=== PATIENT | female | born 1970 | race Caucasian/White ===

== ENCOUNTER 2016-07-29 22:29 | Inpatient (IN) | payer OTHER ==
[~2016-07-29] VITALS: Ht 162.6 cm; Wt 92.0 kg
[2016-07-30] VITALS (20 sets, daily range): BP systolic 92–153; BP diastolic 50–96; O2SAT 98–100
[2016-07-30] MEDS ORDERED: MORPHINE 2 MG/ML 1ML SYRINGE IV PRN
[2016-07-30 02:39] LABS: ABG BASE EXCESS -7.2 (-2.0-2.0); ABG PARTIAL PRESSURE CO2 35.5 mmHg (35.0-45.0); ABG STANDARD HCO3 18.3 MEQ/L (22.0-26.0); ABG TOTAL CO2 19.1 MEQ/L (22.0-29.0); ABG pH (ARTERIAL) 7.323 UNITS (7.350-7.450)
[2016-07-30 02:41] LABS: ABG PARTIAL PRESSURE O2 39.9 mmHg (75.0-100.0)
[2016-07-30 02:54] LABS: ABG BASE EXCESS -5.6 (-2.0-2.0); ABG HCO3 18.2 MEQ/L (22.0-26.0); ABG PARTIAL PRESSURE CO2 30.3 mmHg (35.0-45.0); ABG PARTIAL PRESSURE O2 117.8 mmHg (75.0-100.0); ABG STANDARD HCO3 19.9 MEQ/L (22.0-26.0); ABG TOTAL CO2 19.1 MEQ/L (22.0-29.0); ABG pH (ARTERIAL) 7.396 UNITS (7.350-7.450)
[2016-07-30 03:00] LABS: BASO % 0.1 % (0.0-1.0); EOS # 0.2 K/mm3 (0.0-0.50); EOS % 3.1 % (0.0-3.0); LARGE UNSTAINED CELL # 0.1 K/mm3 (0.0-0.4); LYMPH # 0.9 K/mm3 (1.5-4.5); LYMPH % 11.8 % (24.0-44.0); MEAN CORPUSCULAR HEMOGLOBIN 28.9 pg (27.0-33.0); MEAN CORPUSCULAR HGB CONC 33.9 g/dl (32.0-36.5); MEAN CORPUSCULAR VOLUME 85.3 fl (80.0-96.0); MONO # 0.4 K/mm3 (0.0-0.8); MONO % 4.7 % (0.0-5.0); NEUTROPHILS # 5.8 K/mm3 (1.8-7.7); NEUTROPHILS % 79.2 % (36.0-66.0); PLATELET COUNT, AUTOMATED 229 k/mm3 (150-450); RED CELL DISTRIBUTION WIDTH 13.8 % (11.5-14.5); WHITE BLOOD COUNT 7.3 K/mm3 (4.0-10.0)
[2016-07-30] MEDS: CHLORHEXIDINE GLUCONATE 0.12 % 15ML UDC (PERIDEX ORAL RINSE) MT SCH ×3 (03:00→20:39)
[2016-07-30] MEDS ORDERED: TOPI25TA5 PO (03:04)
[2016-07-30] MEDS ORDERED: QUET1TAB10 PO (03:04)
[2016-07-30] MEDS ORDERED: NP T15TA PO (03:04)
[2016-07-30] MEDS ORDERED: TYLE1TAB5 PO (03:04)
[2016-07-30] MEDS ORDERED: LAMO100T PO (03:04)
[2016-07-30] MEDS ORDERED: AZIT250T3 PO (03:04)
[2016-07-30] MEDS ORDERED: CETI10TA PO (03:04)
[2016-07-30] MEDS ORDERED: FLON1SPR (03:04)
[2016-07-30] MEDS ORDERED: MIRA33504 PO (03:04)
[2016-07-30] MEDS ORDERED: CARV6.25 PO (03:04)
[2016-07-30] MEDS ORDERED: SENN-15 PO (03:04)
[2016-07-30] MEDS ORDERED: DULO1CAP3 PO (03:04)
[2016-07-30] MEDS ORDERED: PRAZ2CAP PO (03:04)
[2016-07-30] MEDS ORDERED: [UNRECOGNIZED DRUG - CODE] PO (03:04)
[2016-07-30] MEDS ORDERED: CLON0.5T PO (03:04)
[2016-07-30 03:44] LABS: ALBUMIN 2.6 GM/DL (3.2-5.2); ALBUMIN/GLOBULIN RATIO 0.93 (1.00-1.93); ALKALINE PHOSPHATASE 83 U/L (45-117); ALT/SGPT 30 U/L (12-78); ANION GAP 9 MEQ/L (8-16); AST/SGOT 126 U/L (15-37); BILIRUBIN,TOTAL 0.3 MG/DL (0.2-1.0); BLOOD UREA NITROGEN 11 MG/DL (7-18); CALCIUM LEVEL 7.3 MG/DL (8.5-10.1); CARBON DIOXIDE LEVEL 20 MEQ/L (21-32); CHLORIDE LEVEL 118 MEQ/L (98-107); CHOLESTEROL LEVEL 128 MG/DL (< 200); CREATININE FOR GFR 0.76 MG/DL (0.55-1.02); GLOMERULAR FILTRATION RATE > 60.0 (>58); GLUCOSE, FASTING 106 MG/DL (70-105); PHOSPHORUS LEVEL 1.9 MG/DL (2.5-4.9); POTASSIUM SERUM 3.6 MEQ/L (3.5-5.1); SODIUM LEVEL 147 MEQ/L (136-145); TOTAL PROTEIN 5.4 GM/DL (6.4-8.2); TRIGLYCERIDES LEVEL 115 MG/DL (<150)
[2016-07-30 05:28] LABS: HIVSOURCE0 NEGATIVE (NEGATIVE)
[2016-07-30 05:29] LABS: HIV SOURCE PT 1 NEGATIVE (NEGATIVE)
[2016-07-30 05:30] LABS: CONTROL LINE INT CTR LINE PRESENT
[2016-07-30] MEDS: PROPOFOL 1,000 MG in APPROPRIATE DILUENT 1 EA IV SCH ×3 (05:36→20:38)
[2016-07-30 06:26] LABS: ABG BASE EXCESS -6.3 (-2.0-2.0); ABG HCO3 16.1 MEQ/L (22.0-26.0); ABG PARTIAL PRESSURE CO2 23.8 mmHg (35.0-45.0); ABG STANDARD HCO3 19.3 MEQ/L (22.0-26.0); ABG TOTAL CO2 16.8 MEQ/L (22.0-29.0); ABG pH (ARTERIAL) 7.447 UNITS (7.350-7.450)
--- NOTE | 2016-07-30 06:39 | RO ---
DATE OF PROCEDURE: 07/30/2016 PREPROCEDURE DIAGNOSIS: Hypotension. POSTPROCEDURE DIAGNOSIS: Hypotension. PROCEDURE: Left radial arterial line. PROCEDURALIST: Nikunj Crawford DO PARENT PARTNER: None. ANESTHESIA: The patient was sedated on mechanical ventilation. DESCRIPTION OF PROCEDURE: The right radial artery was evaluated with a normal Luis Miguel's test. The skin was prepped and draped with chlorhexidine and a sterile barrier. A time out was performed identifying correct site, correct procedure. The needle was passed into the artery on the first pass with return of pulsatile blood flow. Wire was fed through the needle and the Sensor Tower arterial line catheter was placed via modified Seldinger technique. After the wire was removed, the catheter was hooked up to the pressure bag and arterial waveform monitor showed good waveform which correlated with noninvasive blood pressure. There were no observed complications. This was sutured in and a sterile impregnated dressing was placed over the site.
--- NOTE | 2016-07-30 06:59 | HPE ---
DATE OF ADMISSION: 07/30/2016 Critical care time was 1 hour and 30 minutes. This excludes all procedures. I waited for the arrival of this patient who was sent from an outside hospital after she was admitted on July 28. According to the history from the chart and the provider I spoke to, Dr. Morales, the arrived via EMS after being found unresponsive by her boyfriend. They felt that despite her not being responsive to noxious stimuli that she could still protect her airway and she was occasionally moving. Therefore, they monitored her there. She had progressive decreased mental status and then it was felt that last evening around 10:00 p.m. she was unable to protect her airway. Therefore, she was intubated shortly after 10:00 p.m. There is an estimated overdose of Lamictal, 34 pills of 100 mg tablets, 30 tablets of 25 mg of Topamax, 46 tablets of 0.5 clonazepam, and 16 tablets is 6.25 mg of Coreg. The patient had no significant blood pressure abnormalities or change in QTc. Toxicology screen was negative. I do not see where a test was performed. There was some suspicion of a possible aspiration and therefore ceftriaxone was initially given at the outside hospital. There is no one who accompanies her and I am not able to obtain any history other than what is from the chart. She does have a history of depression. Past medical history, as far as I can tell by the chart, is anxiety, hypertension, psychosis, insomnia, hypothyroidism, seasonal allergies, cholecystectomy, appendectomy, hysterectomy, bile duct stent and removal. With a family history of breast cancer. No other history is obtainable. PHYSICAL EXAMINATION: Pulse is 75. Blood pressure is 97/53 with a mean arterial pressure of 71. Temperature is 98.3. Respiratory rate is 20 and oxygen saturations 100% on 0.40 FiO2. GENERAL: Patient is sedated on mechanical ventilation. On her arrival she was on propofol and fentanyl. I removed the fentanyl and attempted a neurologic exam. Her pupils are approximately 4 mm and equal bilaterally. They are reactive. I could not get a corneal reflex. Oculocephalic reflex is normal. She has a cough with suctioning of the endotracheal tube; however, she is not responsive to painful stimuli. There is no evidence of tremor or seizure activity. HEENT: Sclerae clear and anicteric. Mucous membranes are moist without lesions. Endotracheal tube was moved back to 21 cm at the lip. Teeth in good repair. Tongue is midline. NECK: Supple. No tracheal deviation or mass. No elevated jugular venous pulse (JVP). No thyromegaly. CARDIAC: Regular S1 and S2 without audible murmur, rub or gallop. No elevated JVP. No peripheral edema. PULMONARY: Clear to auscultation without rales, rhonchi or wheezes. No dullness to percussion. ABDOMEN: Slightly distended, non-tympanic. No discernible hepatosplenomegaly or mass. No rebound or guarding, however, she is not responding to painful stimuli. I do not auscultate any bowel sounds. EXTREMITIES: Some generalized edema without pitting. No evidence of fracture or joint effusion. SKIN: No evidence of cellulitis rash in our bruising or jaundice. NEUROLOGIC: As mentioned above. LABORATORY EVALUATION: Pending at outside. Arterial blood gas, once I adjusted her ventilatory settings, is pH of 7.396, pCO2 of 30, and a PaO2 of 117. She had a chest x-ray on arrival to the ICU after I pulled the endotracheal tube back, as I did not auscultate good breath sounds on the left. After this adjustment, the endotracheal tube appears to be in adequate position, approximately just above 4 cm above the alida. There is some prominence of the right aleisha. otherwise no significant infiltrate or mass. There is no evidence of pneumothorax. There is no air under the diaphragm. OG tube appears to be in good position. EKG performed at bedside, based on my order, shows a sinus rhythm without any significant ST abnormalities. No significant prolongation of the QRS, although there is an interventricular delay with a duration of 103. QTC is 329. IMPRESSION: 46-year-old female with: 1. Respiratory failure secondary to drug overdose. Will continue to monitor for side effects of drug overdose. Given the dose that she took of the Lamictal and Topamax, she is at risk for seizures. Because of the clonazepam, this may off offset it, however, given the large dose of clonazepam it may take some time for her to recover neurologically. Will continue to monitor, perform daily sedation vacations with neurologic exam to monitor for neurologic recovery. 2. Gastrointestinal (GI) prophylaxis with Protonix. 3. Deep vein thrombosis (DVT) prophylaxis with Lovenox. 4. Will obtain a critical care panel, CBC and continue monitor for signs and symptoms of infection. 5. Hypotension likely sedative induced. Will wean off sedation as much as possible, allow for neurologic recovery. I did place an R line due to her relative hypotension. There is no signs of sepsis or septic shock. I have also ordered a test. Critical care time as mentioned above, 1 hour 30 minutes, spent at bedside, which excludes all procedures. At this point in time, will closely monitor for cardiac abnormalities and neurologic response given the overdose of multiple medications.
[2016-07-30] MEDS: ENOXAPARIN 40 MG/0.4 ML SYRINGE (J1650) SC SCH (09:03)
[2016-07-30] MEDS: PANTOPRAZOLE 40MG INJ (PROTONIX) (C9113) IV SCH (09:04)
--- NOTE | 2016-07-30 09:54 | REP ---
PORTABLE CHEST: Single AP view of the chest is performed. There are no prior studies. There is poor ventilation with mild patchy atelectasis/infiltrate in each lung base. Heart does not appear to be significantly enlarged. Mediastinal silhouette is unremarkable. Endotracheal tube is seen with the tip about 4.5 cm above the alida. Nasogastric tube is seen traversing into the stomach with the distal end not visualized. IMPRESSION: Mild patchy bibasilar atelectasis/infiltrate. Endotracheal tube and nasogastric tube as above. Signed by Chris Ayala MD 07/30/2016 07:58 P
--- NOTE | 2016-07-30 21:38 | ECGEPIP ---
Stationary ECG Study [facility] Test Date: 2016-07-30 Pat Name: BERENICE LAMBERT Department: Room: [place] [address] Gender: F Irrigation Laborer: : 1970 Requested By: FRANCO Mccloud Order Number: [id number] Reading MD: Aryan Perez Measurements Intervals [place] Rate: 75 P: 56 NC: 151 QRS: 20 QRSD: 103 T: 5 QT: 329 QTc: 369 Interpretive Statements SINUS RHYTHM NONSPECIFIC T-WAVE ABNORMALITY Comparison tracing not on file Electronically Signed On 07-30-2016 21:38:41 EST by Aryan Perez
[2016-07-31] VITALS (11 sets, daily range): BP systolic 110–140; BP diastolic 58–85; O2SAT 98
[2016-07-31 05:14] LABS: MEAN CORPUSCULAR HEMOGLOBIN 28.8 pg (27.0-33.0); MEAN CORPUSCULAR HGB CONC 34.7 g/dl (32.0-36.5); RED CELL DISTRIBUTION WIDTH 13.6 % (11.5-14.5)
[2016-07-31 05:32] LABS: ALBUMIN 2.7 GM/DL (3.2-5.2); ALBUMIN/GLOBULIN RATIO 0.93 (1.00-1.93); ALKALINE PHOSPHATASE 86 U/L (45-117); ALT/SGPT 34 U/L (12-78); ANION GAP 9 MEQ/L (8-16); AST/SGOT 132 U/L (15-37); BILIRUBIN,TOTAL 0.3 MG/DL (0.2-1.0); BLOOD UREA NITROGEN 11 MG/DL (7-18); CALCIUM LEVEL 7.5 MG/DL (8.5-10.1); CARBON DIOXIDE LEVEL 21 MEQ/L (21-32); CHLORIDE LEVEL 116 MEQ/L (98-107); CREATININE FOR GFR 0.73 MG/DL (0.55-1.02); GLOMERULAR FILTRATION RATE > 60.0 (>58); GLUCOSE, FASTING 102 MG/DL (70-105); POTASSIUM SERUM 3.6 MEQ/L (3.5-5.1); SODIUM LEVEL 146 MEQ/L (136-145); TOTAL PROTEIN 5.6 GM/DL (6.4-8.2)
[2016-07-31 05:47] LABS: ABG BASE EXCESS -3.7 (-2.0-2.0); ABG HCO3 19.7 MEQ/L (22.0-26.0); ABG PARTIAL PRESSURE O2 114.9 mmHg (75.0-100.0); ABG STANDARD HCO3 21.4 MEQ/L (22.0-26.0); ABG TOTAL CO2 20.7 MEQ/L (22.0-29.0); ABG pH (ARTERIAL) 7.422 UNITS (7.350-7.450)
[2016-07-31] MEDS: PROPOFOL 1,000 MG in APPROPRIATE DILUENT 1 EA IV SCH (07:03)
[2016-07-31] MEDS: ENOXAPARIN 40 MG/0.4 ML SYRINGE (J1650) SC SCH (08:48)
[2016-07-31] MEDS: CHLORHEXIDINE GLUCONATE 0.12 % 15ML UDC (PERIDEX ORAL RINSE) MT SCH (08:48)
[2016-07-31] MEDS: PANTOPRAZOLE 40MG INJ (PROTONIX) (C9113) IV SCH (08:49)
--- NOTE | 2016-07-31 09:11 | CCN ---
DATE OF SERVICE: 07/31/2016 The patient is sedated on mechanical ventilation. Has improved mentation on sedation vacation. No evidence of arrhythmias on telemetry. She is now on a spontaneous breathing trial. I expect to attempt extubation this morning. PHYSICAL EXAMINATION: Temperature is 99.0, pulse is 81, blood pressure is 116/58 with a mean arterial pressure of 77, respiratory rate is 18, oxygen saturation is 98% on 0.30 FiO2. General: The patient is awake. Opens her eyes to commands. Follows simple commands. HEENT: Sclerae clear and anicteric. Pupils equal and react to light. Mucous membranes are moist without lesions. Endotracheal tube is in place. Neck is supple. No tracheal deviation or mass. Cardiac: Regular S1, S2 without audible murmur, rub, or gallop. No elevated jugular venous pressure (JVP). No peripheral edema. Abdomen is soft, nontender, nondistended. No hepatosplenomegaly. No masses or hernia. Extremities: No cyanosis, clubbing, or edema. Skin: No rashes, jaundice, or bruising. Musculoskeletal: No tremor, asterixis, or unilateral weakness. LABORATORY EVALUATION: Shows sodium 146, potassium 3.6, chloride of 116, bicarbonate of 21, BUN 11, and creatinine 0.73. White blood cell count is 7.0, hemoglobin 11.7, with hematocrit of 33.7, with a platelet count of 257, AST is 132, ALT is 34, albumin is 2.7. Chest x-ray shows that the endotracheal tube is approximately 6.7 cm above the alida. There is a blunting of the costophrenic angle. Arterial blood gas shows a pH of 7.42, PCO2 of 31, pAO2 of 115. IMPRESSION: 1. Respiratory failure secondary to drug overdose. The patient has neurologic recovery this morning. I have placed her in a spontaneous breathing trial and will attempt extubation if she passes this trial. 2. Drug overdose. Will require psychiatric counseling and inpatient admission. When she is able to have a conversation, I will consult psychiatry. 3. Nutrition. Will start by mouth nutrition after extubation as soon as swallowing has been evaluated. 4. Elevated CK. Will repeat CPK today. Likely secondary to the intoxication from the Lamictal and Topamax. The patient actually had hyperchloremic metabolic acidosis from excessive fluid administration and had edema yesterday. No further intravenous (IV) fluids have been given, and she is sustaining an adequate blood pressure with good urine output. Critical care time was 1 hour. This excludes all procedures. Critical management required for timing of extubation, evaluation of respiratory failure.
--- NOTE | 2016-07-31 10:05 | REP ---
PORTABLE CHEST: AP portable view of the chest is performed and compared with prior study of 07/30/2016. Bibasilar infiltrates/atelectasis appear unchanged. Cardiomediastinal silhouette is unchanged. Endotracheal tube and nasogastric tube are again noted without significant change in position. Side port of the nasogastric tube is seen in the stomach. IMPRESSION: Stable exam. Signed by Chris Ayala MD 07/31/2016 01:56 P
[2016-07-31] MEDS ORDERED: MIRALAX *UNIT DOSE* 17GM PACKET PO PRN (18:30)
[2016-08-01 06:00] VITALS: BP 157/88
[2016-08-01] MEDS ORDERED: THYROID 15 MG PO SCH (06:00)
[2016-08-01 08:17] LABS: MEAN CORPUSCULAR HEMOGLOBIN 29.1 pg (27.0-33.0); MEAN CORPUSCULAR HGB CONC 34.5 g/dl (32.0-36.5); MEAN CORPUSCULAR VOLUME 84.3 fl (80.0-96.0); RED CELL DISTRIBUTION WIDTH 13.6 % (11.5-14.5); WHITE BLOOD COUNT 7.9 K/mm3 (4.0-10.0)
[2016-08-01] MEDS ORDERED: FLUTICASONE PROP 0.05% NASAL SPRAY 16 GM (FLONASE) SCH (09:00)
[2016-08-01] MEDS ORDERED: SENOKOT S TAB PO SCH (09:00)
[2016-08-01] MEDS ORDERED: CETIRIZINE (ZyrTEC) 10 MG TAB PO SCH (09:00)
[2016-08-01] MEDS ORDERED: CARVedilol 6.25 MG TAB PO SCH (09:00)
[2016-08-01 09:02] LABS: ANION GAP 9 MEQ/L (8-16); BLOOD UREA NITROGEN 10 MG/DL (7-18); CALCIUM LEVEL 8.1 MG/DL (8.5-10.1); CARBON DIOXIDE LEVEL 23 MEQ/L (21-32); CHLORIDE LEVEL 112 MEQ/L (98-107); CREATININE FOR GFR 0.72 MG/DL (0.55-1.02); GLOMERULAR FILTRATION RATE > 60.0 (>58); GLUCOSE, FASTING 105 MG/DL (70-105); POTASSIUM SERUM 3.4 MEQ/L (3.5-5.1); SODIUM LEVEL 144 MEQ/L (136-145)
[2016-08-01] MEDS ORDERED: CEPACOL LOZENGE PO PRN (12:45)
[2016-08-01] MEDS ORDERED: POTASSIUM CHLORIDE 10 MEQ SR TABLET PO ONE (13:15)
[2016-08-01 14:00] VITALS: BP 162/90
[2016-08-01 14:01] VITALS: BP 157/88
--- NOTE | 2016-08-01 15:36 | IPNPDOC ---
Date Seen The patient was seen on 08/01/16. Progress Note Hospitalist Progress Note Subjective: Patient states that she currently feels well. When asked what happened and that night, she says "I was stupid." Objective: Physical Exam: Vitals: Vital Sign - Last 24 Hours 07/31/16 07/31/16 08/01/16 08/01/16 21:00 22:00 06:00 09:57 Temp 98.9 97.5 Pulse 84 71 Resp 18 18 B/P 140/79 157/88 Pulse Ox 98 96 O2 Delivery Room Air Room Air Room Air Room Air 08/01/16 14:01 Pulse 71 B/P 157/88 General: Awake, alert: No acute distress HEENT: Normocephalic, atraumatic, extraocular movements intact CV: Regular Rate and rhythm Lungs: Clear to auscultation bilaterally Abd: Soft, nontender, nondistended Extremities: No edema Neuro: Alert and oriented 3 Psych: Cooperative, currently denies SI Labs and Imaging: Laboratory Tests 08/01/16 08:09 Calcium Level 8.1 L, Red Blood Count 4.19, Mean Corpuscular Volume 84.3, Mean Corpuscular Hemoglobin 29.1, Mean Corpuscular Hemoglobin Concent 34.5, Red Cell Distribution Width 13.6 Assessment and Plan: 46-year-old female with anxiety, depression, unspecified psychosis, hypertension , hypothyroidism, seasonal allergies who was transferred from an outside hospital after overdosing on Lamictal, Topamax, clonazepam, and Coreg. Upon admission, she required intubation to protect her airway. She was extubated on 07/31/2016, and at that point was transferred to our service. She is currently medically stable, and we are working on getting her evaluated for inpatient psychiatry. 1. Intentional overdose, history of anxiety, depression, unspecified psychosis: The patient is now medically stable. We are holding her home Lamictal, Topamax, clonazepam, Minipress, Seroquel, and Cymbalta. Dr. Crawford spoke to Dr. Pryor with psychiatry yesterday. Evidently, at the time, the patient was not willing to participate in an evaluation by Dr. Pryor. When I evaluated the patient today , she is very calm and cooperative. I initially asked Dr. Pryor if he would be able to come by and reevaluate her, but he advised that I contact the person who is on-call for today. I spoke with Dr. Cantor, who is currently listed as the psychiatrist dimensional engineer today, and he is unaware that he is taking new consults. I have spoken to the psychiatry nurse parking garage manager, who is trying to help me straighten out who is actually available to evaluate this patient. At this time , I am awaiting a call back from the psychiatry nurse parking garage manager. At this time, the patient remains on suicide precautions. 2. Hypertension: We will resume the patient's home coreg. 3. Hypothyroidism: Continue the patient's home thyroid replacement. DVT prophylaxis: SCDs Dispo: pending psychiatric evaluation VS, I&O, 24H, Fishbone Vital Signs/I&O Vital Signs Date Time Temp Pulse Resp B/P Pulse Ox O2 Delivery O2 Flow Rate FiO2 08/01/16 14:01 71 157/88 08/01/16 09:57 Room Air 08/01/16 06:00 97.5 18 96 07/31/16 10:00 28 I&O- Last 24 Hours up to 6 AM 08/01/16 06:00 Intake Total 1200 ml Output Total 1160 ml Balance 40 ml Laboratory Data 24H LABS Laboratory Tests 2 08/01/16 08:09: Anion Gap 9, Blood Urea Nitrogen 10, Creatinine 0.72, Sodium Level 144, Potassium Level 3.4L, Chloride Level 112H, Carbon Dioxide Level 23, Calcium Level 8.1L, Glomerular Filtration Rate > 60.0, Magnesium Level 2.0, Total Creatine Kinase 3906H CBC/BMP Laboratory Tests 08/01/16 08:09 Calcium Level 8.1 L, Red Blood Count 4.19, Mean Corpuscular Volume 84.3, Mean Corpuscular Hemoglobin 29.1, Mean Corpuscular Hemoglobin Concent 34.5, Red Cell Distribution Width 13.6 MAGDA RODRÍGUEZ Aug 01, 2016 15:36
--- NOTE | 2016-08-01 18:00 | DS.PDOC ---
Discharge Summary General Date of Admission Jul 30, 2016 at 01:56 Date of Discharge 08/01/2016 Discharge Summary DATE OF ADMISSION: 07/30/2016 DATE OF DISCHARGE: 08/01/2016 PRIMARY CARE PHYSICIAN: Unknown DISCHARGE DIAGNOS(E)S: Intentional overdose HPI & HOSPITAL COURSE: 46-year-old female with anxiety, depression, unspecified psychosis, hypertension , hypothyroidism, seasonal allergies who was transferred from an outside hospital after overdosing on Lamictal, Topamax, clonazepam, and Coreg. Upon admission, she required intubation to protect her airway. She was extubated on 07/31/2016, and at that point was transferred to our service. She is currently medically stable, and is being discharged in inpatient psychiatry. 1. Intentional overdose, history of anxiety, depression, unspecified psychosis: The patient is now medically stable. We are holding her home Lamictal, Topamax, clonazepam, Minipress, Seroquel, and Cymbalta. We appreciate the input of the psychiatry team 2. Hypertension: We will resume the patient's home coreg. 3. Hypothyroidism: Continue the patient's home thyroid replacement. DVT prophylaxis: SCDs PHYSICAL EXAMINATION ON DISCHARGE: Vitals: Vital Signs Date Time Temp Pulse Resp B/P Pulse Ox O2 Delivery O2 Flow Rate FiO2 08/01/16 14:01 71 157/88 08/01/16 14:00 98.5 20 97 Room Air 07/31/16 10:00 28 General: Awake, alert: No acute distress HEENT: Normocephalic, atraumatic, extraocular movements intact CV: Regular Rate and rhythm Lungs: Clear to auscultation bilaterally Abd: Soft, nontender, nondistended Extremities: No edema Neuro: Alert and oriented 3 Psych: Cooperative, currently denies SI DISPOSITION: Inpatient psychiatry DISCHARGE INSTRUCTIONS: Follow up with PCP and outpatient psychiatrist upon discharge from inpatient psychiatry. If symptoms return, or if you experience worsening of your symptoms, please call your doctor or return to the emergency department. ITEMS THAT NEED OUTPATIENT FOLLOWUP: None Patient was seen and examined by me on the day of discharge, and I spent a total time of greater than 30 minutes on this discharge. Vital Signs/I&Os Vital Signs Date Time Temp Pulse Resp B/P Pulse Ox O2 Delivery O2 Flow Rate FiO2 08/01/16 14:01 71 157/88 08/01/16 14:00 98.5 20 97 Room Air 07/31/16 10:00 28 I&O- Last 24 Hours up to 6 AM 08/01/16 06:00 Intake Total 1200 ml Output Total 1160 ml Balance 40 ml Laboratory Data Labs 24H Laboratory Tests 2 08/01/16 08:09: Anion Gap 9, Blood Urea Nitrogen 10, Creatinine 0.72, Sodium Level 144, Potassium Level 3.4L, Chloride Level 112H, Carbon Dioxide Level 23, Calcium Level 8.1L, Glomerular Filtration Rate > 60.0, Magnesium Level 2.0, Total Creatine Kinase 3906H CBC/BMP Laboratory Tests 08/01/16 08:09 Calcium Level 8.1 L, Red Blood Count 4.19, Mean Corpuscular Volume 84.3, Mean Corpuscular Hemoglobin 29.1, Mean Corpuscular Hemoglobin Concent 34.5, Red Cell Distribution Width 13.6 Discharge Medications Scheduled (Tylenol Pm Extra Strength 500-25 mg) 1 Tab Tab 1 TAB PO QHS (Reported) (Flonase Allergy Relief) 50 Mcg/Act Spr 50 MCG NA BID (Reported) Carvedilol (Carvedilol) 6.25 Mg Tab 6.25 MG PO BID (Reported) Cetirizine HCl (Cetirizine HCl) 10 Mg Tab 10 MG PO DAILY (Reported) Docusate Sod/Senna (Sennosides/Docusate Sodiu 8.6-50 mg) 1 Tab Tab 2 TAB PO DAILY (Reported) Psyllium (Natural Fiber) 0.52 Gm Cap 1.04 GM PO DAILY (Reported) Thyroid (E Learning Designer Thyroid 15) 15 Mg Tab 15 MG PO DAILY (Reported) Scheduled PRN Polyethylene Glycol (Miralax) 1 Pow Pow 17 GM PO DAILY PRN PRN BOWEL CARE/ CONSTIPATION (Reported) Allergies Coded Allergies: Oxycodone (Unverified Allergy, Unknown, 07/30/16) Prednisone (Unverified Allergy, Unknown, 07/30/16) Propoxyphene (Unverified Allergy, Unknown, 07/30/16) MAGDA RODRÍGUEZ Aug 01, 2016 18:00
--- NOTE | 2016-08-02 09:14 | CR ---
DATE OF CONSULTATION: 08/01/2016 LEGAL STATUS AT ADMISSION: [facility] director ([facility]) legal status. CHIEF COMPLAINT: "I was overwhelmed." HISTORY OF PRESENT ILLNESS: 46-year-old female with history of depression, admitted to the intensive care unit (ICU) after she overdosed on a large amount of several medications, including #34 pills of Lamictal 100 mg, #30 pills of Topamax 25 mg, #46 pills of clonazepam 0.5 mg, and #16 pills of Coreg 6.25 mg. Patient was intubated because of acute respiratory failure due to the overdose. Once medically cleared, a consult was generated in order to transfer the patient to inpatient psychiatry for continuation of treatment. During the interview, patient is very tearful and labile. Patient is not able to give a full description of her depressive symptoms. She was making statements such as "I was very overwhelmed." "I was taking too much medication." "I didn't feel like going on." "I could not get better." Patient reports that she has been depressed approximately 2 months and is followed at [facility] by Dr. Connell. During the interview, there is no evidence of psychotic symptoms, no auditory or visual hallucinations or delusions. Patient is denying any problem with substance or alcohol. PAST MEDICAL HISTORY: Patient has been diagnosed with hypertension, hypothyroidism, and status post acute respiratory failure due to overdose. PAST PSYCHIATRIC HISTORY: Patient has been diagnosed with depression and is being followed at [facility] by Dr. Connell. Patient reports she was taking Seroquel, Lamictal, Topamax, and Klonopin, but she at this point is not a reliable historian. FAMILY HISTORY: Patient reports she has a brother with bipolar disorder and alcohol dependency and has a grandfather with alcohol problems. SUBSTANCE ABUSE HISTORY: Patient denies any problems with drugs or alcohol. SOCIAL HISTORY: Patient was raised by both parents. Reports completely normal childhood with no abuse or neglect. She finished high school and is now finishing college. She is now in a relationship with her significant other of 3 years that she states is very supportive. She has five children of her own and he has three children. REVIEW OF SYSTEMS: CONSTITUTIONAL: No weight loss, fever, chills, weakness, or fatigue. HEENT: No visual loss, blurry vision, double vision, or yellow sclerae. No hearing loss, sneezing, congestion, runny nose, or sore throat. SKIN: No rash or itching. CARDIOVASCULAR: No chest pain, chest pressure, chest discomfort, palpitations, or edema. RESPIRATORY: No shortness of breath, cough, or sputum. GASTROINTESTINAL (GI): No anorexia, nausea, vomiting, or diarrhea. No abdominal pain or blood. GENITOURINARY (): No burning or pain on urination. NEUROLOGICAL: No headache, dizziness, syncope, paralysis, ataxia, numbness, or tingling. MUSCULOSKELETAL: No muscle, back pain, joint pain, or stiffness. HEMATOLOGIC: No anemia, bleeding, or bruising. LYMPHATICS: No history of a splenectomy. ENDOCRINOLOGY: No report of sweating, cold, or heat intolerance. No polyuria or polydipsia. ALLERGIES: No history of asthma, hives, eczema, or rhinitis. MENTAL STATUS EXAMINATION: Patient is dressed in hospital gown. Patient is cooperative but very tearful and labile. Speech is soft and monotone. Has fair eye contact. Mood is very anxious and depressed. Affect is labile and congruent with mood. Patient is oriented to time, place, person, and situation. Maintains attention and concentration correctly. Instant recall, recent, and remote memory are intact. Thought processes are coherent, logical, and goal-directed. Patient does not have auditory or visual hallucinations. Patient does not have paranoid, persecutory, somatic, grandiose, or holiness delusions. Patient is denying homicidal thoughts. Patient was just treated in the ICU for an overdose with a large amount of different medications. Judgment and insight are limited. DIAGNOSES: AXIS I: Major depressive disorder. AXIS II: Deferred. AXIS III: Hypertension, hypothyroidism, status post respiratory failure. RECOMMENDATIONS: Patient will need to be transferred to the inpatient psychiatric unit for continuation of treatment.
[2016-08-03 11:32] LABS: HEP C VIRUS AB INDEX SOURCE PT 0.1 INDEX (0.0-0.8)
== END 2016-08-01 20:00 | DRG 951 ==
LOC: M ICU 07-30 01:56 → M MS5PR 07-31 13:33
PROVIDERS: ADMIT Internal Medicine Pulmonary Disease; ATTEND Hospitalist
PROC: 03H63DZ Insertion of Intraluminal Device into Left Axillary Artery, Percutaneous Approach (ICD-10-PCS; principal; 2016-07-30)
DX: T42.4X2A Poisoning by benzodiazepines, intentional self-harm, initial encounter (principal); J96.90 Respiratory failure, unspecified, unspecified whether with hypoxia or hypercapnia; E03.9 Hypothyroidism, unspecified; I10 Essential (primary) hypertension; I95.9 Hypotension, unspecified; F32.9 Major depressive disorder, single episode, unspecified

== ENCOUNTER 2016-08-01 20:08 | Inpatient (IN) | payer OTHER ==
[~2016-08-01] VITALS: Ht 170.2 cm; Wt 87.0 kg
[~2016-08-01 20:08] MED LIST: AZIT250T3 PO; CARV6.25 PO; CETI10TA PO; CLON0.5T PO; DULO1CAP3 PO; FLON1SPR; LAMO100T PO; MIRA33504 PO; NP T15TA PO; PRAZ2CAP PO; QUET1TAB10 PO; SENN-15 PO; TOPI25TA5 PO; TYLE1TAB5 PO; [UNRECOGNIZED DRUG - CODE] PO
[2016-08-01 20:53] VITALS: BP 140/87
[2016-08-01] MEDS ORDERED: MOM 30ML SUSPENSION UDC PO PRN (21:30)
[2016-08-01] MEDS ORDERED: MIRALAX *UNIT DOSE* 17GM PACKET PO PRN (21:30)
[2016-08-01] MEDS: CARVedilol 6.25 MG TAB PO SCH (22:34)
[2016-08-02] MEDS: THYROID 15 MG PO SCH (06:05)
[2016-08-02 06:35] VITALS: BP 129/78
[2016-08-02] MEDS: CETIRIZINE (ZyrTEC) 10 MG TAB PO SCH (09:00)
[2016-08-02] MEDS: METAMUCIL (PSYLLIUM) PACKET PO SCH (09:00)
[2016-08-02] MEDS: SENOKOT S TAB PO SCH (09:00)
[2016-08-02] MEDS: FLUTICASONE PROP 0.05% NASAL SPRAY 16 GM (FLONASE) SCH ×3 (09:00→20:26)
--- NOTE | 2016-08-02 09:12 | HPEPDOC ---
Medical History and Physical Date of Admission Aug 01, 2016 at 20:08 History and Physical PCP: [facility] ATTENDING: Dr. Aryan Perez HPI: 46yoF admitted to [facility] for unspecified depressive disorder, being medically examined today. Patient was hospitalized from 07/30/16-08/01/16 after being transferred from an outside hospital after being found unresponsive by her boyfriend after an apparent medication overdose of Lamictal, Topamax, clonazepam and Coreg. She required intubation to protect her airway, she was subsequently extubated 07/31/16. She was felt medically stable for transfer to [facility] 08/01/16. No acute medical complaints today. Denies any fevers, chills, weakness, fatigue, FRANCOIS, CP, SOB, cough, palpitations, abdominal pain, N/V/D or changes in bowel or bladder habits. PMHx: Anxiety Hypertension Insomnia Hypothyroidism Allergic rhinitis PSHX: Bile duct stent and removal Cholecystectomy Appendectomy Hysterectomy SOCHX: Resides in: [place] Marital Status: Kids: 5 Employment: Unemployed Tobacco use: Denies ETOH: Denies Illicit Drugs: Denies IV Drug Use: Denies Tattoos done unprofessionally: Denies FAMHX: Mother: Alive, thyroid disease Father: Alive, well Siblings: 2 brothers, one sister Alive, history of substance use, breast cancer Children: Alive, well Unexpected deaths due to medical reasons: None. ROS: As noted in HPI, otherwise 11pt ROS of systems reviewed and remarkable only for LMP NA, hysterectomy. PE: GEN: 46 yo F, appears stated age. Well-nourished, well developed. No acute distress. Alert and oriented x 3. Pleasant, interactive. HEENT: Normocephalic, atraumatic. Pupils are equal, round, and reactive to light. Extraocular movements are intact. No nystagmus appreciated. Sclera are nonicteric. Conjunctiva without injection. Nose midline. Nasal turbinates without bogginess. EACs both patent BL. TMs both visualized and rhodes with good cone of light, no bulging or erythema. No facial asymmetry. Moist mucous membranes. Dentition fair. Pharynx pink and moist, no cobblestoning. Neck supple , trachea midline. No lymphadenopathy or thyromegaly appreciated. CHEST: Regular rate and rhythm, +S1, +S2 LUNGS: Clear to auscultation bilaterally. No wheezes, rales, or rhonchi. Breathing appears symmetric and easy. Patient is speaking in full sentences. No accessory muscle use. ABD: Round, soft, non-tender, non-distended. +Bowel sounds throughout. No rebound or guarding. No costovertebral angle tenderness. EXT: Pulses 2+ bilaterally dorsalis pedis and radial. No lower extremity edema appreciated. SKIN: Gardi, dry, warm. Capillary refill <2sec. No rashes. NEURO: Alert and oriented x 3. Cranial nerves III-XII are intact. No focal deficits appreciated. EK07/30/16 SINUS RHYTHM at 75 bpm NONSPECIFIC T-WAVE ABNORMALITY A&P: 46yoF admitted to [facility] for unspecified depressive disorder 1. Psych. Plan per Psychiatry. EKG on file. 2. Hypothyroid. Continue supplement. Check TSH/free T4 with labs. 3. Hypertension. Continue Coreg 6.25 mg by mouth twice a day with hold parameters. 4. Follow up. No Primary Care Provider. Will attempt to establish PCP on discharge. 5. Hypokalemia. Status post supplementation. Recheck BMP. 6. Rhabdomyolysis. Trending downward. Recheck CK. 7. Allergic rhinitis. Continue Zyrtec 10 mg daily. Continue Flonase daily. 8. Constipation. Continue Senokot 2 tablets daily. Continue Metamucil 1 packet daily. Continue MiraLAX daily as needed. 9. Staff member present throughout exam, Jody PACHECO. Vital Signs Vital Signs Label Value Date Time Patient Temperature 97.2 degrees F 08/02/16 06 Temperature Source Tympanic 08/02/16 06 Pulse 89 08/02/16 0635 Respiratory Rate 18 bpm 08/02/16 0635 Blood Pressure Assessment 129/78 (95) 08/02/16 0635 Bedside Pulse Oximetry 98 % 08/01/162052 Item Value Date Time Oxygen Delivery Method Room Air 08/01/162052 Laboratory Data Labs 24H Item Value Date Time White Blood Count 7.9 K/mm3 08/01/16 08 Red Blood Count 4.19 M/mm3 08/01/16 08 Hemoglobin 12.2 g/dl 08/01/16 08 Hematocrit 35.3 % L 08/01/16 08 Mean Corpuscular Volume 84.3 fl 08/01/16 0809 Mean Corpuscular Hemoglobin 29.1 pg 08/01/16 0809 Mean Corpuscular Hemoglobin Concent 34.5 g/dl 08/01/16 0809 Red Cell Distribution Width 13.6 % 08/01/16 0809 Platelet Count 296 k/mm3 08/01/16 0809 Sodium Level 144 MEQ/L 08/01/16 0809 Potassium Level 3.4 MEQ/L L 08/01/16 0809 Chloride Level 112 MEQ/L H 08/01/16 0809 Carbon Dioxide Level 23 MEQ/L 08/01/16 0809 Anion Gap 9 MEQ/L 08/01/16 0809 Blood Urea Nitrogen 10 MG/DL 08/01/16 0809 Creatinine 0.72 MG/DL 08/01/16 0809 Glomerular Filtration Rate > 60.0 08/01/16 0809 Fasting Glucose 105 MG/DL 08/01/16 0809 Calcium Level 8.1 MG/DL L 08/01/16 0809 Magnesium Level 2.0 MG/DL 08/01/16 0809 Total Creatine Kinase 3906 U/L H 08/01/16 0809 Human Chorionic Gonadotropin, Quant < 1.0 MIU/ML 07/30/16 0251 Home Medications Scheduled (Tylenol Pm Extra Strength 500-25 mg) 1 Tab Tab 1 TAB PO QHS (Flonase Allergy Relief) 50 Mcg/Act Spr 50 MCG NA BID Carvedilol (Carvedilol) 6.25 Mg Tab 6.25 MG PO BID Cetirizine HCl (Cetirizine HCl) 10 Mg Tab 10 MG PO DAILY Docusate Sod/Senna (Sennosides/Docusate Sodiu 8.6-50 mg) 1 Tab Tab 2 TAB PO DAILY Psyllium (Natural Fiber) 0.52 Gm Cap 1.04 GM PO DAILY Thyroid (Chopper Operator Thyroid 15) 15 Mg Tab 15 MG PO DAILY Scheduled PRN Polyethylene Glycol (Miralax) 1 Pow Pow 17 GM PO DAILY PRN PRN BOWEL CARE/ CONSTIPATION Allergies Coded Allergies: Oxycodone (Unverified Allergy, Unknown, 07/30/16) Prednisone (Unverified Allergy, Unknown, 07/30/16) Propoxyphene (Unverified Allergy, Unknown, 07/30/16) Pia Palomares Aug 02, 2016 09:11
[2016-08-02] MEDS: CARVedilol 6.25 MG TAB PO SCH ×2 (09:30→20:26)
[2016-08-02] MEDS: CEPACOL LOZENGE PO PRN ×3 (10:31→21:30)
[2016-08-02 12:37] LABS: ANION GAP 11 MEQ/L (8-16); BLOOD UREA NITROGEN 10 MG/DL (7-18); CALCIUM LEVEL 9.2 MG/DL (8.5-10.1); CARBON DIOXIDE LEVEL 23 MEQ/L (21-32); CHLORIDE LEVEL 109 MEQ/L (98-107); CREATININE FOR GFR 0.69 MG/DL (0.55-1.02); FREE T4 0.79 NG/DL (0.76-1.46); GLOMERULAR FILTRATION RATE > 60.0 (>58); GLUCOSE, FASTING 97 MG/DL (70-105); POTASSIUM SERUM 4.1 MEQ/L (3.5-5.1); SODIUM LEVEL 143 MEQ/L (136-145)
[2016-08-02 22:29] VITALS: BP 149/95
[2016-08-02] MEDS: MAALOX 30 ML SUSP *UDC PO PRN (23:26)
[2016-08-03] MEDS: CEPACOL LOZENGE PO PRN ×3 (00:16→23:03)
[2016-08-03] MEDS: THYROID 15 MG PO SCH (06:13)
[2016-08-03 06:20] VITALS: BP 128/90
[2016-08-03 07:07] LABS: ANION GAP 8 MEQ/L (8-16); BLOOD UREA NITROGEN 8 MG/DL (7-18); CALCIUM LEVEL 8.6 MG/DL (8.5-10.1); CARBON DIOXIDE LEVEL 27 MEQ/L (21-32); CHLORIDE LEVEL 108 MEQ/L (98-107); CREATININE FOR GFR 0.64 MG/DL (0.55-1.02); GLOMERULAR FILTRATION RATE > 60.0 (>58); GLUCOSE, FASTING 112 MG/DL (70-105); POTASSIUM SERUM 3.7 MEQ/L (3.5-5.1); SODIUM LEVEL 143 MEQ/L (136-145)
[2016-08-03 08:05] VITALS: BP 129/83
[2016-08-03] MEDS: CARVedilol 6.25 MG TAB PO SCH ×2 (08:19→21:02)
[2016-08-03] MEDS: FLUTICASONE PROP 0.05% NASAL SPRAY 16 GM (FLONASE) SCH ×2 (08:19→21:03)
[2016-08-03] MEDS: SENOKOT S TAB PO SCH (08:19)
[2016-08-03] MEDS: METAMUCIL (PSYLLIUM) PACKET PO SCH (08:20)
[2016-08-03] MEDS: CETIRIZINE (ZyrTEC) 10 MG TAB PO SCH (08:21)
[2016-08-03 08:51] VITALS: BP 143/96
[2016-08-03] MEDS: ANALGESIC BALM CRM 120 GM TOP PRN (16:20)
[2016-08-03 18:00] VITALS: BP 132/90
[2016-08-03] MEDS: MAALOX 30 ML SUSP *UDC PO PRN (23:03)
[2016-08-04] MEDS: ACETAMINOPHEN TAB 650MG DOSE (2X325MG) PO PRN (02:22)
[2016-08-04] MEDS: THYROID 15 MG PO SCH (06:08)
[2016-08-04 06:34] VITALS: BP 119/85
[2016-08-04] MEDS: SENOKOT S TAB PO SCH (08:01)
[2016-08-04] MEDS: CETIRIZINE (ZyrTEC) 10 MG TAB PO SCH (08:01)
[2016-08-04] MEDS: CARVedilol 6.25 MG TAB PO SCH ×2 (08:01→21:00)
[2016-08-04] MEDS: FLUTICASONE PROP 0.05% NASAL SPRAY 16 GM (FLONASE) SCH ×2 (08:01→21:00)
[2016-08-04] MEDS: METAMUCIL (PSYLLIUM) PACKET PO SCH (08:02)
[2016-08-04] MEDS: MAALOX 30 ML SUSP *UDC PO PRN ×2 (09:31→13:31)
[2016-08-04] MEDS: ANALGESIC BALM CRM 120 GM TOP PRN (21:01)
[2016-08-05] MEDS: THYROID 15 MG PO SCH (05:53)
[2016-08-05] MEDS: MAALOX 30 ML SUSP *UDC PO PRN ×2 (06:51→22:07)
[2016-08-05 06:52] VITALS: BP 131/86
[2016-08-05 07:29] LABS: ANION GAP 11 MEQ/L (8-16); BLOOD UREA NITROGEN 9 MG/DL (7-18); CALCIUM LEVEL 9.1 MG/DL (8.5-10.1); CARBON DIOXIDE LEVEL 26 MEQ/L (21-32); CHLORIDE LEVEL 105 MEQ/L (98-107); GLOMERULAR FILTRATION RATE > 60.0 (>58); GLUCOSE, FASTING 111 MG/DL (70-105); POTASSIUM SERUM 3.8 MEQ/L (3.5-5.1); SODIUM LEVEL 142 MEQ/L (136-145)
[2016-08-05] MEDS: OMEPRAZOLE 20 MG CAP PO SCH (08:22)
[2016-08-05] MEDS: SENOKOT S TAB PO SCH (08:22)
[2016-08-05] MEDS: FLUTICASONE PROP 0.05% NASAL SPRAY 16 GM (FLONASE) SCH ×2 (08:22→20:22)
[2016-08-05] MEDS: CETIRIZINE (ZyrTEC) 10 MG TAB PO SCH (08:22)
[2016-08-05] MEDS: METAMUCIL (PSYLLIUM) PACKET PO SCH (08:23)
[2016-08-05] MEDS: CARVedilol 6.25 MG TAB PO SCH ×2 (08:24→20:20)
[2016-08-05 18:00] VITALS: BP 136/89
[2016-08-05] MEDS: traZODone 50 MG TAB PO PRN (23:12)
[2016-08-06] MEDS: THYROID 15 MG PO SCH (06:13)
[2016-08-06 07:12] VITALS: BP 129/59
[2016-08-06] MEDS: METAMUCIL (PSYLLIUM) PACKET PO SCH (08:11)
[2016-08-06] MEDS: FLUTICASONE PROP 0.05% NASAL SPRAY 16 GM (FLONASE) SCH ×2 (08:11→21:00)
[2016-08-06] MEDS: CARVedilol 6.25 MG TAB PO SCH ×2 (08:13→21:00)
[2016-08-06] MEDS: OMEPRAZOLE 20 MG CAP PO SCH (08:14)
[2016-08-06] MEDS: CETIRIZINE (ZyrTEC) 10 MG TAB PO SCH (08:14)
[2016-08-06] MEDS: SENOKOT S TAB PO SCH (08:14)
[2016-08-06 08:16] VITALS: BP 135/87
[2016-08-06 18:00] VITALS: BP 128/88
[2016-08-06] MEDS: traZODone 50 MG TAB PO PRN (21:00)
[2016-08-06] MEDS: CEPACOL LOZENGE PO PRN (21:01)
[2016-08-06] MEDS: ANALGESIC BALM CRM 120 GM TOP PRN (21:11)
[2016-08-07] MEDS: THYROID 15 MG PO SCH (06:07)
[2016-08-07 07:44] VITALS: BP 127/72
[2016-08-07 08:14] VITALS: BP 134/77
[2016-08-07] MEDS: FLUTICASONE PROP 0.05% NASAL SPRAY 16 GM (FLONASE) SCH ×2 (08:18→21:00)
[2016-08-07] MEDS: OMEPRAZOLE 20 MG CAP PO SCH (08:19)
[2016-08-07] MEDS: CARVedilol 6.25 MG TAB PO SCH ×2 (08:19→20:59)
[2016-08-07] MEDS: CETIRIZINE (ZyrTEC) 10 MG TAB PO SCH (08:19)
[2016-08-07] MEDS: SENOKOT S TAB PO SCH (08:19)
[2016-08-07] MEDS: METAMUCIL (PSYLLIUM) PACKET PO SCH (09:00)
[2016-08-07 18:00] VITALS: BP 135/89
[2016-08-07] MEDS: CEPACOL LOZENGE PO PRN (20:59)
[2016-08-07] MEDS: ANALGESIC BALM CRM 120 GM TOP PRN (21:00)
[2016-08-07] MEDS: traZODone 50 MG TAB PO PRN (21:27)
[2016-08-07] MEDS: ACETAMINOPHEN TAB 650MG DOSE (2X325MG) PO PRN (21:51)
[2016-08-08] MEDS: THYROID 15 MG PO SCH (05:42)
[2016-08-08 06:16] VITALS: BP 132/78
[2016-08-08] MEDS: OMEPRAZOLE 20 MG CAP PO SCH (08:13)
[2016-08-08 08:14] VITALS: BP 132/78
[2016-08-08] MEDS: CETIRIZINE (ZyrTEC) 10 MG TAB PO SCH (08:14)
[2016-08-08] MEDS: SENOKOT S TAB PO SCH (08:14)
[2016-08-08] MEDS: CARVedilol 6.25 MG TAB PO SCH (08:14)
[2016-08-08] MEDS: METAMUCIL (PSYLLIUM) PACKET PO SCH (08:15)
[2016-08-08] MEDS: FLUTICASONE PROP 0.05% NASAL SPRAY 16 GM (FLONASE) SCH (08:15)
[2016-08-08] MEDS ORDERED: TRAZO50TA PO (09:32)
[2016-08-08] MEDS ORDERED: PRIL20CA9 PO (11:09)
[2016-08-08] MEDS ORDERED: BENCRE EX (11:11)
== END 2016-08-08 14:01 | disposition home or self-care (01) | DRG 754 ==
LOC: M PSY 20:08
PROVIDERS: ADMIT Internal Medicine Addiction Medicine; ATTEND Internal Medicine Addiction Medicine
DX: F32.9 Major depressive disorder, single episode, unspecified (principal); G47.00 Insomnia, unspecified; E03.9 Hypothyroidism, unspecified; I10 Essential (primary) hypertension; E87.6 Hypokalemia; K59.00 Constipation, unspecified; J30.9 Allergic rhinitis, unspecified; M62.82 Rhabdomyolysis